=== PATIENT | male | born 1980 | race Two or more races ===

== ENCOUNTER 2022-07-10 07:24 | Emergency (ER) | payer OTHER ==
[~2022-07-10] VITALS: Ht 177.8 cm; Wt 88.0 kg
[2022-07-10] MEDS ORDERED: BIKTARVY 30-121 EACH PO (07:43)
== END 2022-07-10 10:22 | disposition home or self-care (01) ==
LOC: ER 07:24
DX: T50.995A Adverse effect of other drugs, medicaments and biological substances, initial encounter (principal); Z88.6 Allergy status to analgesic agent

== ENCOUNTER 2023-11-23 08:07 | Outpatient (CLI) | payer OTHER ==
[~2023-11-23 08:07] MED LIST: BIKTARVY 30-121 EACH PO
[2023-11-23 09:08] LABS: PH,URINE 7.5 (5.0-8.0); URINE APPEARANCE Clear; URINE BILIRRUBIN Negative (NEGATIVE); URINE BLOOD Negative; URINE COLOR Yellow; URINE GLUCOSE Negative (NEGATIVE); URINE KETONE Negative (NEGATIVE); URINE LEUKOCYTE Negative; URINE NITRATE Negative; URINE PROTEIN Negative (NEGATIVE); URINE UROBILINOGEN 0.2 E.U./dl
[2023-11-23 09:25] LABS: URINE BACTERIA 1.2 uL (0.0-1933); URINE RBC 1.5 uL (0.0-20.8); URINE WBC 0 uL (0.0-23.2)
[2023-11-23 09:31] LABS: HEMATOCRIT 46.9 % (39.0-48.0); MEAN CELL VOLUME 92.1 fL (80.0-100.00); MEAN CORPUSCULAR HEMOGLOBIN 31.3 pg (27.00-32.0); PLATELET COUNT 217 K/uL (150-450); RED CELL DISTRIBUTION WIDTH 12.7 % (11.5-14.5)
[2023-11-23 10:09] LABS: ALBUMIN 4.2 gm/dL (3.4-5.0); BILIRUBIN TOTAL 0.92 mg/dL (0.3-1.2); CALCIUM 9.5 mg/dL (8.5-10.1); CHOL HDL RATIO 3.6 (0-5.0); CREATININE SERUM 0.94 mg/dL (0.70-1.30); GFR 88.88; GLOBULINA 3.1 G/DL (2.4-3.5); POTASSIUM 4.04 mEq/L (3.5-5.1); TOTAL PROTEIN 7.3 gm/dL (6.4-8.2)
== END 2023-11-23 08:15 | disposition home or self-care (01) ==
LOC: LAB 08:07
PROVIDERS: ATTEND Internal Medicine Cardiovascular Disease
DX: E78.1 Pure hyperglyceridemia (principal); E11.9 Type 2 diabetes mellitus without complications; E78.00 Pure hypercholesterolemia, unspecified